=== PATIENT | male | born 1945 | race Caucasian/White ===

== ENCOUNTER 2017-05-10 01:56 | Emergency (ER) | payer OTHER ==
--- NOTE | 2017-05-10 01:58 | EDPHY ---
H & P HPI/ROS: HPI CHIEF COMPLAINT: Left upper extremity swelling, redness, questionable cellulitis HISTORY OF PRESENT ILLNESS: Patient very pleasant 71-year-old male, history of diabetes, additionally bradycardia with a left-sided chest pacemaker he presents emergency room with a left upper extremity redness these concerned maybe is cellulitis. He noticed this around noon today. He has not had any fever or infectious type symptoms. He denies any significant pain. He states for the past 2-3 days he noticed some pain in his left biceps especially when he goes to flex his biceps. He does not recall any trauma but he does report that he worked on a fence and put up fence. He does not recall an injury to his left upper extremity or left bicep. Upon arrival here in the emergency room he appears well nontoxic no acute distress he has left upper biceps region is swollen and there is ecchymosis over the anterior aspect of it. I do not appreciate any warmth, this does not appear cellulitic to me it has a dark red purplish discoloration. It is mildly tender with palpation. There is no crepitus. Distally his left arm has a good pulse. Good cap refill. Sensations intact. There is no evidence of biceps tear. Denies history of DVT or PE. Past Medical History: Diabetes and bradycardia, hyperlipidemia Past Surgical History: Left chest pacemaker Social History: Denies daily use of drugs alcohol tobacco products. Family History: Noncontributory ROS REVIEW OF SYSTEMS: A comprehensive 10 point review of systems is otherwise negative aside from elements mentioned in the history of present illness. Exam Constitutional appears well nontoxic triage nursing summary reviewed, vital signs reviewed, awake/alert. Eyes normal conjunctivae and sclera, EOMI, PERRLA. HENT normal inspection, atraumatic, moist mucus membranes, no epistaxis, neck supple/ no meningismus, no raccoon eyes. Respiratory clear to auscultation bilaterally, normal breath sounds, no respiratory distress, no wheezing. Cardiovascular rate normal, regular rhythm, no murmur, no edema, distal pulses normal. Gastrointestinal soft, non-tender, no rebound, no guarding, normal bowel sounds, no distension, no pulsatile mass. Genitourinary no CVA tenderness. Musculoskeletal left upper extremity: Bicep is mildly swollen and mildly tender , there is no significant warmth, no crepitus, compartments are soft, there is ecchymosis over the anterior left biceps. It is dark red in color. He has good cap refill. Good radial pulse. Full range of motion full flexion of the biceps, no evidence of biceps tear on exam, no lymphadenopathy, no supraclavicular swelling or JVD on exam, no midline vertebral tenderness, full range of motion, no calf swelling, no tenderness of extremities, no meningismus , good pulses, neurovascularly intact. Skin pink, warm, & dry, no rash, skin atraumatic. Neurologic awake, alert and oriented x 3, AAOx3, moves all 4 extremities equally, motor intact, sensory intact, CN II-XII intact, normal cerebellar, normal vision, normal speech. Psychiatric normal mood/affect. Heme/Lymph/Immune no lymphadenopathy. Differential Diagnosis: Includes but is not limited to in a particular order bicep contusion, bicep inflammation, infection, DVT, cellulitis Medical Decision Making: Plan for this patient check basic blood work including CBC, ultrasound left upper extremity rule out DVT. Re-evaluation: Most likely this is left upper extremity contusion with ecchymosis. I do not feel this is significant cellulitis. 0337: Ultrasound report called to me by Dr. Rubio. This shows a small hematoma in the left bicep. No evidence of abscess or cellulitis on ultrasound. No evidence of DVT. Explained this to the patient. Recommend warm compresses. Gentle massage. Return precautions discussed return if worsening swelling, pain, fever questions or concerns. Source: Patient - Personal History Tetanus Vaccine Date: 06/21/10 - Medical/Surgical History Hx Asthma: No Hx Chronic Respiratory Disease: No Hx Diabetes: Yes Hx Cardiac Disease: Yes Hx Renal Disease: No Hx Cirrhosis: No Hx Alcoholism: No Hx HIV/AIDS: No Hx Splenectomy or Spleen Trauma: No Other PMH: PERICARDITIS, PACEMAKER, CERVICAL SURGERY, POLYP REMOVAL SURGERY/ COLON RESECTION, APPY, ING HERNIA, L AND R KNEE SCOPE, HTN, HIGH CHOL, OVERACTIVE BLADDER, ENLARGED PROSTATE - Social History Smoking Status: Former smoker Constitutional: Initial Vital Signs Temperature (C) 36.5 C 05/10/17 02:03 Heart Rate 75 05/10/17 02:03 Respiratory Rate 16 05/10/17 02:03 Blood Pressure 128/72 H 05/10/17 02:03 O2 Sat (%) 96 05/10/17 02:03 O2 Delivery Mode Room Air Allergies/Adverse Reactions: Penicillins Allergy (Severe, Verified 02/22/14 22:10) Anaphylaxis Home Medications: Medication Instructions Recorded Aspirin [Aspirin 81mg (*)] 81 mg PO BID 09/01/13 Cholecalciferol (Vitamin D3) 4,000 unit PO DAILY 09/01/13 [Vitamin D3] FENOFIBRATE 160 mg PO HS 09/01/13 Metoprolol Tartrate [Lopressor 25 12.5 mg PO BID 09/01/13 mg (*)] Solifenacin Succinate [Vesicare 5 5 mg PO HS 09/01/13 MG (*)] Vitamin B Complex [B Complex] 1 each PO DAILY 09/01/13 Cephalexin [Keflex] 500 mg PO Q6H #28 cap 05/10/17 Metformin HCl 05/10/17 Vesicare 05/10/17 Medical Decision Making - Data Points Laboratory Results: Laboratory Results 05/10/17 02:35 05/10/17 02:35 05/10/17 05/10/17 02:35 02:35 WBC 6.41 10^3/uL 10^3/uL (3.80-9.50) RBC 5.11 10^6/uL 10^6/uL (4.40-6.38) Hgb 16.1 g/dL g/dL (13.7-17.5) Hct 46.4 % % (40.0-51.0) MCV 90.8 fL fL (81.5-99.8) MCH 31.5 pg pg (27.9-34.1) MCHC 34.7 g/dL g/dL (32.4-36.7) RDW 12.9 % % (11.5-15.2) Plt Count 208 10^3/uL 10^3/uL (150-400) MPV 9.9 fL fL (8.7-11.7) Neut % (Auto) 57.2 % % (39.3-74.2) Lymph % (Auto) 30.4 % % (15.0-45.0) Stevens % (Auto) 8.6 % % (4.5-13.0) Eos % (Auto) 3.0 % % (0.6-7.6) Baso % (Auto) 0.3 % % (0.3-1.7) Nucleat RBC Rel Count 0.0 % % (0.0-0.2) Absolute Neuts (auto) 3.67 10^3/uL 10^3/uL (1.70-6.50) Absolute Lymphs (auto) 1.95 10^3/uL 10^3/uL (1.00-3.00) Absolute Monos (auto) 0.55 10^3/uL 10^3/uL (0.30-0.80) Absolute Eos (auto) 0.19 10^3/uL 10^3/uL (0.03-0.40) Absolute Basos (auto) 0.02 10^3/uL 10^3/uL (0.02-0.10) Absolute Nucleated RBC 0.00 10^3/uL 10^3/uL (0-0.01) Immature Gran % 0.5 % % (0.0-1.1) Immature Gran # 0.03 10^3/uL 10^3/uL (0.00-0.10) Sodium 146 mEq/L H mEq/L (134-144) Potassium 4.9 mEq/L mEq/L (3.5-5.2) Chloride 111 mEq/L H mEq/L (97-110) Carbon Dioxide 23 mEq/l mEq/l (22-31) Anion Gap 12 mEq/L mEq/L (8-16) BUN 30 mg/dL H mg/dL (7-23) Creatinine 1.2 mg/dL mg/dL (0.7-1.3) Estimated GFR 60 Glucose 134 mg/dL H mg/dL (70-100) Calcium 10.2 mg/dL mg/dL (8.5-10.4) Departure - Departure Disposition: Home, Routine, Self-Care Clinical Impression: Hematoma of arm Contusion of left upper extremity Qualifiers: Encounter type: initial encounter Qualified Code(s): S40.022A - Contusion of left upper arm, initial encounter Condition: Good Instructions: Contusion in Adults (ED), Hematoma (ED) Additional Instructions: 1. Watch this area closely if he develops fever, worsening redness, worsening pain seek re-evaluation. 2. Warm compresses 2-3 times per day. 3. I do believe this is most likely a contusion or bruise of her left upper extremity however I have given you antibiotic just in case this gets worse. 4. Follow up with her primary care doctor. Referrals: Miya Browning MD [Primary Care Provider] - As per Instructions Prescriptions: Cephalexin [Keflex] 500 mg PO Q6H #28 cap
[2017-05-10 02:10] VITALS: RESP 16; TEMP 97.7
[2017-05-10 02:42] LABS: PLATELET COUNT 208 10^3/uL (150-400)
[2017-05-10 03:49] VITALS: BP 125/74; PULSE 84; O2SAT 93
== END 2017-05-10 03:48 | disposition home or self-care (01) ==
DX: S40.022A Contusion of left upper arm, initial encounter (principal); E11.9 Type 2 diabetes mellitus without complications; I10 Essential (primary) hypertension; Z95.0 Presence of cardiac pacemaker; Z87.891 Personal history of nicotine dependence; Z79.82 Long term (current) use of aspirin; Z79.84 Long term (current) use of oral hypoglycemic drugs; X58.XXXA Exposure to other specified factors, initial encounter; Y99.8 Other external cause status; Y93.89 Activity, other specified

== ENCOUNTER 2017-08-16 08:01 | Inpatient (IN) | payer OTHER ==
--- NOTE | 2017-08-16 08:20 | EDPHY ---
H & P Time Seen by Provider: 08/16/17 08:16 HPI/ROS: CHIEF COMPLAINT: Dizzy lightheaded HISTORY OF PRESENT ILLNESS: Patient has pacemaker is set for rate minimum of 60 and was diagnosed with about a week and half ago with battery end of life. Feel a little fatigue yesterday and then today was dizzy and lightheaded worse with standing or exertion and feels very tired. Symptoms moderate to severe. Not associated with chest pain shortness of breath or actual fainting. REVIEW OF SYSTEMS: Eye: no change in vision ENT: no sore throat Cardiac: HPI Pulmonary: no cough or SOB Abdomen: no vomiting, diarrhea, abdominal pain Musculoskeletal: no back pain Skin: no rash Neuro: no headache Constitutional: no fever : no urinary symptoms A comprehensive 10 point review of systems is otherwise negative aside from elements mentioned in the history of present illness. PAST MEDICAL HISTORY: Pericarditis, pacer, neck surgery. Colon resection, appendectomy, hypertension, hypercholesterolemia. Sick sinus syndrome with pacemaker dependence. Social history: Currently not a smoker General Appearance: Alert and conversant, cooperative. Eyes: No scleral icterus. ENT, Mouth: Normal mucous membranes. Respiratory: Normal respiratory effort, breath sounds equal, lungs are clear to auscultation. Cardiovascular: Regular rate and rhythm. Bradycardic. Gastrointestinal: Abdomen is soft and non tender. Neurological: Alert, face symmetric, normal motor and sensory in extremities. Skin: Warm and dry, no rashes. Musculoskeletal: No peripheral edema. Psychiatric: Not agitated. Emergency Department course/MDM: 940: per [employer] rate goes down with end of battery life, can't change that setting. Discussed with Dr. Trimble who recommends admission for pacemaker battery change. Urinalysis and echocardiogram. Plan discussed with the patient. Smoking Status: Former smoker Constitutional: Initial Vital Signs Temperature (C) 36.7 C 08/16/17 08:09 Heart Rate 57 L 08/16/17 08:09 Respiratory Rate 16 08/16/17 08:09 Blood Pressure 123/92 H 08/16/17 08:09 O2 Sat (%) 99 08/16/17 08:09 O2 Delivery Mode Room Air Allergies/Adverse Reactions: Penicillins Allergy (Severe, Verified 08/16/17 08:07) Anaphylaxis Home Medications: Medication Instructions Recorded Aspirin [Aspirin 81mg (*)] 81 mg PO BID 09/01/13 Cholecalciferol (Vitamin D3) 4,000 unit PO DAILY 09/01/13 [Vitamin D3] FENOFIBRATE 160 mg PO HS 09/01/13 Metoprolol Tartrate [Lopressor 25 12.5 mg PO BID 09/01/13 mg (*)] Solifenacin Succinate [Vesicare 5 5 mg PO HS 09/01/13 MG (*)] Vitamin B Complex [B Complex] 1 each PO DAILY 09/01/13 Metformin HCl 05/10/17 Vesicare 05/10/17 Rosuvastatin Calcium 08/16/17 Turmeric 08/16/17 Medical Decision Making - Diagnostics EKG Interpretation: 12-lead EKG interpreted by me; official reading is in trace master. My interpretation is ventricular paced complexes with left bundle branch block rate 53. Differential Diagnosis: Differential considered including but not limited to bradycardia, pacemaker dysfunction, metabolic abnormality, acute neurologic problems such as stroke. Consult/Admit Bed Type: [facility] [address], [place] [id number] - Data Points Laboratory Results: Laboratory Results 08/16/17 08:34 08/16/17 08:34 08/16/17 08/16/17 08:34 08:34 WBC 5.01 10^3/uL 10^3/uL (3.80-9.50) RBC 5.18 10^6/uL 10^6/uL (4.40-6.38) Hgb 16.1 g/dL g/dL (13.7-17.5) Hct 47.3 % % (40.0-51.0) MCV 91.3 fL fL (81.5-99.8) MCH 31.1 pg pg (27.9-34.1) MCHC 34.0 g/dL g/dL (32.4-36.7) RDW 13.1 % % (11.5-15.2) Plt Count 201 10^3/uL 10^3/uL (150-400) MPV 10.5 fL fL (8.7-11.7) Neut % (Auto) 49.1 % % (39.3-74.2) Lymph % (Auto) 33.5 % % (15.0-45.0) Smith % (Auto) 12.0 % % (4.5-13.0) Eos % (Auto) 4.6 % % (0.6-7.6) Baso % (Auto) 0.2 % L % (0.3-1.7) Nucleat RBC Rel Count 0.0 % % (0.0-0.2) Absolute Neuts (auto) 2.46 10^3/uL 10^3/uL (1.70-6.50) Absolute Lymphs (auto) 1.68 10^3/uL 10^3/uL (1.00-3.00) Absolute Monos (auto) 0.60 10^3/uL 10^3/uL (0.30-0.80) Absolute Eos (auto) 0.23 10^3/uL 10^3/uL (0.03-0.40) Absolute Basos (auto) 0.01 10^3/uL L 10^3/uL (0.02-0.10) Absolute Nucleated RBC 0.00 10^3/uL 10^3/uL (0-0.01) Immature Gran % 0.6 % % (0.0-1.1) Immature Gran # 0.03 10^3/uL 10^3/uL (0.00-0.10) Sodium 143 mEq/L mEq/L (135-145) Potassium 4.9 mEq/L mEq/L (3.5-5.2) Chloride 107 mEq/L mEq/L (97-110) Carbon Dioxide 23 mEq/l mEq/l (22-31) Anion Gap 13 mEq/L mEq/L (8-16) BUN 28 mg/dL H mg/dL (7-23) Creatinine 1.3 mg/dL mg/dL (0.7-1.3) Estimated GFR 54 Glucose 125 mg/dL H mg/dL (70-100) Calcium 9.6 mg/dL mg/dL (8.5-10.4) Troponin I < 0.012 ng/mL ng/mL (0.000-0.034) Departure - Departure Disposition: [facility] Clinical Impression: Bradycardia, Pacemaker at end of battery life Condition: Good
--- NOTE | 2017-08-16 08:22 | CPEKG ---
Heart Rate: 53 RR Interval: 1132 P-R Interval: 160 QRSD Interval: 182 QT Interval: 540 QTC Interval: 508 P [place]: 0 QRS [place]: -57 T Wave [place]: 11 EKG Severity - ABNORMAL ECG - EKG Impression: VENTRICULAR-PACED COMPLEXES EKG Impression: LEFT BUNDLE BRANCH BLOCK Electronically Signed By: Olvin Simons 16-Aug-2017 09:57:46
[2017-08-16 09:27] LABS: PLATELET COUNT 201 10^3/uL (150-400)
[2017-08-16] MEDS ORDERED: ONDANSETRON DISINTEGRATING 4 MG TAB PO PRN (10:17)
[2017-08-16] MEDS ORDERED: ACETAMINOPHEN 325 MG TAB PO PRN (10:17)
[2017-08-16] MEDS ORDERED: ONDANSETRON 4 MG/2 ML VIAL IVP PRN (10:17)
[2017-08-16] MEDS ORDERED: NS 1,000 ML IV SCH (10:30)
--- NOTE | 2017-08-16 11:25 | ECHO ---
[email or web address] [address] [address] Main: [phone] Fax: [email or web address] Echocardiogram Name: CARL JAQUEZ MR#: [id number] Study Date: 08/16/2017 Study Time: 10:48 AM Date of : 1945 Age: 72 year(s) Height: 167.6 cm (66 in.) Weight: 94.8 kg (209 lb.) BSA: 2.04 m2 Gender: Male Examination: Echo Indication: SOB/bradycardia/hx pacer Image Quality: Contrast: Requested by: Olvin Simons BP: 125 mmHg/83 mmHg Heart Rate: Rhythm: Indication: SOB/bradycardia/hx pacer Procedure Staff Applications Engineering Manager: Narcisa Michael RDCS Reading Physician: Jim Trimble MD Requesting Provider: Conclusions: 1)Normal LV size and systolic function with a LVEF of 55%. 2)Borderline concentric LVH noted. 3)Mild RV enlargement with normal RVEF. 4)Mild bi-atrial enlargement. 5)Pacer wires noted in right heart chambers. 6)Aortic valve sclerosis without or AI noted. 7)Mild MR without MV prolapse. 8)Mild TR with estimated normal PA pressures. Measurements: Chambers Valvular Assessment AV/MV Valvular Assessment TV/PV Normal Normal Normal Name Value Range Name Value Range Name Value Range Ao Vanessa (2D): 3.3 cm (1.4 cm-2.6 AV Vmax: 1.28 m/s (1 m/s-1.7 TR Vmax: 2.57 mm/s ( - ) cm) m/s) TR PGmax: 26 mmHg ( - ) IVSd (2D): 0.8 cm (0.6 cm-1.1 AV maxP mmHg ( - ) syst. PAP: 31 mmHg ( - ) cm) AV meanP mmHg ( - ) LVDd (2D): 5.0 cm (4.2 cm-5.9 MV E Vmax: 0.87 m/s ( - ) cm) MV A Vmax: 0.26 m/s ( - ) LVDs (2D): 3.3 cm (2.1 cm-4 MV E/A: 3.35 ( - ) cm) LVPWd (2D): 0.9 cm (0.6 cm-1 cm) LVEF (MOD4): 55 % (>=55 %) Continued Measurements: Chambers Valvular Assessment AV/MV Valvular Assessment TV/PV Name Value Name Value Name Value LADs: 4.0 cm MV E/E' Septal: 13.40 CVP (est.): 5 mmHg Patient: CARL JAQUEZ Study Date: 08/16/2017 Page 1 of 2 10:48 AM LADs Lon.3 cm MV E/E' Lateral: 12.00 LA Area: 17.7 cm2 Findings: Left Ventricle: Normal size left ventricle. Borderline concentric LV hypertrophy. Normal global systolic LV function. EF is 55 %. No regional wall motion abnormality. Right Ventricle: Mildly dilated right ventricle. Normal RV function. There is a pacemaker lead noted in the right ventricle. There is a moderator band noted in the right ventricle. Left Atrium: The left atrium is mildly dilated. Right Atrium: The right atrium is mildly dilated. Mitral Valve: The mitral valve is normal in appearance and function. Mild mitral valve regurgitation is present. Aortic Valve: Mildly calcified NCC of the aortic valve.. Tricuspid Valve: The tricuspid valve is normal in appearance and function. Mild tricuspid regurgitation is present. The pulmonary artery pressure is normal. Pulmonic Valve: The pulmonic valve is normal in appearance and function. Trivial pulmonic valve regurgitation. Aorta: The aorta is normal. Pericardium: No pericardial effusion. (No Signature Object) Patient: CARL JAQUEZ Study Date: 08/16/2017 Page 2 of 2 10:48 AM [id number]
--- NOTE | 2017-08-16 13:01 | GCON ---
[f rep st] CONSULTATION CARDIOLOGY CONSULTATION REFERRING PHYSICIAN: Edith Acharya MD REASON FOR CARDIOLOGY CONSULTATION: Lightheadedness, short of breath, and fatigue symptoms; known hi story of sick sinus syndrome with previous PPM implantation, device has hit ROJELIO. HISTORY OF PRESENT ILLNESS: The patient is a 72-year-old male who is followed by Dr Rose of our [facility]. He has significant past history that includes sick sinus syndrome with remote PPM implantation May of 2009, hypertension, occasional premature ventricular contractions, subclinical CAD based off cardiac calcium scoring, noninsulin-dependent diabetes; sleep apnea, both centralized and obstruc tive, currently on CPAP. Patient informs me that he has been in his usual state of health. He had a recent device check done at our office, showing his device was soon to hit ROJELIO. He was planning to be seen in the next week for evaluation, with generator change. He informs me this morning waking up , feeling very fatigued, mild lightheadedness, and some shortness of breath. When he took his pulse, he noted his heart rate was 50 beats per minute. Knowing that his device had been set at 60, he was concerned that the device was malfunctioning. He came into the emergency department for further gianfranco luation. Upon there, he was found to be in a VVI rhythm. [employer] inbound sales representative did come up to in terrogate device, showing that it had reached ROJELIO, and had mode switched to VVI to conserve battery l otilio. He reports mild fatigue and shortness of breath with these new settings on his device. He jasmin es any chest pressure or pain. Reports no palpitations, did report some mild lightheadedness with po sitional changing starting this morning, but denies of any near-syncope or syncopal events. He repor ts no recent history of fevers, chills, or night sweats. Denies of any symptoms suggestive of TIA or CVA. PAST MEDICAL HISTORY: Patient with significant past history that includes: 1. Sick sinus syndrome. 2. CAD based off a cardiac calcium scoring CT, reporting most recent stress test less than 2 years a go and he was told everything was "fine.". 3. Hyperlipidemia. 4. Hypertension. 5. Diabetes type 2. 6. Sleep apnea, both centralized and obstructive, currently on CPAP. PAST SURGICAL HISTORY: Previous PPM implantation in May of 2009, history of bowel resection, pre vious cervical spine fusion, scoping of both knees, history of vasectomy, history of T and A, history of appendectomy. FAMILY HISTORY: Patient reports family history of coronary artery disease, reporting older brother jeff ojeda a CABG at age of 80, another older brother who of sudden cardiac . SOCIAL HISTORY: He is . He is retired computer analysis multimedia programmer. He has a previous histo ry of smoking, quitting greater than 40 years ago. He has 5 children, 2 are officially his, who are both alive and well. He reports he drinks 3-4 drinks a week, and occasional marijuana use; denies of any other illicit drug use. ALLERGIES: The patient with reported history of penicillin allergy. MEDICATIONS: At home include metoprolol tartrate 12.5 mg p.o. b.i.d., vitamin D 2000 units p.o. chioma y, metformin 1000 mg p.o. daily at 8 o'clock, Crestor 40 mg p.o. h.s., fenofibrate 160 mg p.o. h.s., aspirin 81 mg p.o. daily, VESIcare 10 mg p.o. daily, Flonase 1 spray each nostril daily, multivitamin p.o. daily, vitamin B 1 tablet p.o. daily, herbs and supplements 1 tablet p.o. daily. REVIEW OF SYSTEMS: A 10-point review of systems done on patient, all negative except as mentioned ab ove. PHYSICAL EXAMINATION: GENERAL APPEARANCE: Medium-built, mildly-obese, male. He is alert and oriented to person, place, time, and situation. Appears to be under no acute distress at this ti hi. CURRENT VITAL SIGNS: Heart rate 55 beats per minute, ventricular paced on the monitor. Blood p ressure of 103/69, respirations 16, saturating 96% on room air. HEENT: Head is normocephalic. Lips and tongue are pink and moist with no signs of cyanosis. Conjunctivae pink. NECK: Trachea is midl ine, +2 carotid pulses bilateral. No auscultated bruits. LUNGS: Clear to auscultation, no rhonchi, rales or wheezes, no accessory muscle use. No intercostal muscle retraction noted. CARDIAC: Regul ar rate, regular rhythm, S1, S2, no S3, S4, gallops, rubs, or murmurs. ABDOMEN: Soft, nontender, dhaval wel sounds x4 quadrants, no organomegaly, no palpable masses. SKIN: [place], warm, dry, no cyanosis, n o clubbing, no peripheral edema. VASCULAR: +2 carotids bilateral, +2 radials bilateral, +2 dorsal p edal and posterior tibial pulses bilateral. LABORATORY STUDIES: Laboratory studies drawn today show WBC of 5.01, hemoglobin of 16.1, hematocrit of 47.3, platelet count of 201. Sodium 143, potassium 4.9, chloride 107, CO2 of 23, BUN 28, creatini ne 1.3, glucose 125, calcium 9.6, troponin less than 0.012. STUDIES: Electrocardiogram done on admission shows ventricular-paced rhythm. Echocardiogram done in the emergency department this morning showing normal LV size and systolic function with EF of 55%, b orderline concentric LVH, mild RV enlargement with normal RVEF, mild biatrial enlargement, aortic mirian ve sclerosis without stenosis or insufficiency, mild MR without mitral valve prolapse, mild TR with n ormal pulmonary artery pressures. ASSESSMENT AND PLAN: 1. Sick sinus syndrome: Patient noted with history of sick sinus syndrome with remote permanent pac emaker implantation, device is at ROJELIO, causing it to mode switch to a VVI mode and lower rate. Patie nt does report lightheadedness, shortness of breath, and potential near-syncopal event this morning. We will plan on patient being admitted to the telemetry unit overnight, and make him n.p.o. after mi dnight, and plan for a permanent pacemaker device change tomorrow to be performed by Dr Souza. Prophy lactic IV antibiotic has been ordered for tomorrow morning. If necessary, procedure can be done soon er more urgently. 2. History of coronary artery disease: This is based off cardiac calcium scoring. He reports he mills s had a stress test in the last 2 years at [facility] which was normal. Echocardiogram showi ng normal LV wall motion with normal ejection fraction. Negative troponin, patient has had no chest pain or pressure. Continue on current anti-platelet therapy of aspirin. 3. Hypertension: The patient's blood pressure is well controlled at the current time, if anything m ildly low, probable due to lower heart rate with PPM in ROJELIO mode of VVI. Hold his beta-susie metop rolol at the current time. 4. Noted history of premature ventricular contractions. Patient again reporting recent stress testi ng with no signs of ischemia, has been treated for PVCs with metoprolol in the past, currently on hol d due to his bradycardia. Potentially will reinstitute after device change and set back to his mirna l parameters. 5. Hyperlipidemia: The patient is on secondary risk prevention with Crestor and fenofibrate. Will plan on him continuing these medications during hospitalization. 6. Diabetes: The patient is currently on metformin. He is also being followed by hospitalist cata anne with further recommendations. 7. Thank you for this consultation. We will be glad to follow along with you. /[id number]
--- NOTE | 2017-08-16 13:06 | GHP ---
[f rep st] HISTORY AND PHYSICAL DATE OF ADMISSION: 08/16/2017 CHIEF COMPLAINT: Dizziness. HISTORY OF PRESENT ILLNESS: This is a 72-year-old male, with a history of a permanent pacemaker plac ed for sick sinus syndrome, who presents with sudden onset of symptoms of dizziness and lightheadedne ss the morning of the presentation. Patient reports being in his normal state of health the day befo re, eating and drinking normally, without any diarrhea, nausea, vomiting, chest pain, palpitations. The patient then awoke this morning and had a very intense sense of dizziness and described sensation of his heart beating slowly. The patient presented to the emergency department for evaluation. In the ED, he is denying any chest pain, vision changes, headaches, persistent sensation of lightheadedn ess, weakness, and a slow heart rate. Patient was evaluated by the [employer] device specialist and f ound to be in a reserve battery mode of his pacemaker, which switched into that mode the morning of p resentation, consistent with the initiation of his symptoms. The patient reports compliantly taking all his medications the morning of presentation. Is not endorsing any other physical complaints. PAST MEDICAL HISTORY: 1. Sick sinus syndrome, status post pacemaker placement. 2. Hypertension. 3. Hyperlipidemia. 4. Type 2 diabetes. 5. Coronary artery disease, diagnosed by calcium score with the CT scan. SOCIAL HISTORY: The patient has smoked for 20 years but has not smoked in the last 40. Occasional a lcohol. Occasional marijuana. No illicit drugs. FAMILY HISTORY: Positive for heart disease. REVIEW OF SYSTEMS: A 10-point review of systems is negative, with the exception of that reported in the HPI. PHYSICAL EXAMINATION: VITAL SIGNS: Blood pressure 103/69, heart rate 53, respiratory rate 16, 96% o n room air, 36.5. GENERAL: This is an obese, pleasant, middle-aged male. HEENT: Notable for moist mucous membranes. Eye exam is negative for any icterus. CARDIAC: Patient is bradycardic, regular with a systolic murmur. HEART: Sounds are distant. PULMONARY: Good respiratory effort. Clear to auscultation bilaterally. GASTROINTESTINAL: Positive bowel sounds. ABDOMEN: Soft and nontender. MUSCULOSKELETAL: Negative for any lower extremity edema. SKIN: Negative for any rashes. NEUROLOGI C: Patient is alert and oriented x3. PSYCHIATRIC: He is pleasant and cooperative on interview and examination. DATA: White count 5, hematocrit 47.3, platelets of 201. Sodium 143, creatinine 1.3, glucose 125. T roponin less than 0.012. EKG, which I personally reviewed and interpreted, shows paced rhythm in the 50s. ASSESSMENT AND PLAN: This is a 72-year-old male presenting with dizziness. 1. Acute dizziness. Based on the patient's symptoms, and the timing of his device setting changing to reserve battery mode, suspect his symptoms are related to his paced rate. The patient will be adm itted, placed on telemetry, be made [id number] after midnight tonight for device change tomorro w. We will hold his beta susie overnight. 2. Diabetes. The patient takes metformin in the outpatient setting. Will hold while inpatient. 3. Hypertension. Patient's blood pressures are borderline low. We will hold his metoprolol, as men tioned above. 4. Hyperlipidemia. We will continue his statin and fenofibrate. 5. Coronary artery disease, per calcium score and a CT scan. Patient is on baby aspirin, statin, an d a beta susie. He is currently without any chest pain complaints. We will continue the aspirin a nd lipid agents, holding the metoprolol until after his device exchange. DIET: Cardiac and n.p.o. after midnight. PROPHYLAXIS: Will hold for procedure tomorrow. DISPOSITION: I expect greater than 2 midnights. The patient will require monitoring this evening, a s well as postprocedural monitoring tomorrow evening. I discussed the case with Cardiology. Patient will be triaged to the PCU for monitoring and care. /[id number]/MODL
--- NOTE | 2017-08-16 14:47 | PDMN ---
Medical Necessity Medical necessity: C/M review: est. > 2 MN LOS for eval and TX of acute dizziness, patient permanent pacemaker in reserve battery mode upon interrogation in ED, which switched into that mode this AM prior to presentation to ED, requiring Cardiology consult, planned 08/17/2017 permanent pacemaker device change, hold metoprolol 08/16/2017 overnight, ongoing cardiac monitoring, comorbid type 2 diabetes, hypertension, hyperlipidemia, CAD per calcium score and CT scan, history of sick sinus syndrome S/P pacemaker placement per H/P.
[2017-08-16] MEDS ORDERED: ROSUVASTATIN CALCIUM 40 MG TAB PO SCH (21:00)
[2017-08-16] MEDS ORDERED: FENOFIBRATE 160 MG PO SCH (21:00)
[2017-08-16] MEDS ORDERED: ZOLPIDEM TARTRATE 5 MG TAB PO PRN (21:12)
[2017-08-17 05:22] LABS: PLATELET COUNT 205 10^3/uL (150-400)
[2017-08-17 05:33] LABS: INR 1.05 (0.83-1.16); PROTIME(PATIENT) 13.9 SEC (12.0-15.0)
[2017-08-17] MEDS ORDERED: BACITRACIN IRRIGATION/NS 50,000 UNITS/1,000 ML BTL IRR ONE (06:00)
[2017-08-17] MEDS ORDERED: NS 1,000 ML IV ONE (06:00)
[2017-08-17] MEDS ORDERED: VANCOMYCIN 1.5 GM in D5W 250 ML IV ONE (06:30)
--- NOTE | 2017-08-17 07:51 | PDHPUP ---
History & Physical Update H&P update statement: This history and physical update is based on an assessment of the patient which was completed after admission or registration (within 24 hours), but prior to the surgery/procedure. H&P update: H&P reviewed & patient examined, no change in patient's condition since H&P completed
--- NOTE | 2017-08-17 07:54 | PDPROPOC ---
Sedation Plan of Care Sedation Plan of Care: vital signs stable, mental status noted, patient educated of risks, benefits, alternatives, patient can tolerate sedation ASA Classification: ASA 3 Planned drugs: fentanyl, midazolam Mallampati Score: Class 3 Mallampati Reference Image: Patient passed 3-3-2 rule?: Yes
[2017-08-17] MEDS ORDERED: LIDOCAINE 1% 300 MG/30 ML SDV ONE (08:34)
[2017-08-17] MEDS ORDERED: LIDO/EPI 1% **for epidural** 30 ML SDV ONE (08:35)
[2017-08-17] MEDS ORDERED: fentaNYL 100 MCG/2 ML INJ ONE ×2 (08:35→09:03)
[2017-08-17] MEDS ORDERED: BUPIVACAINE 0.5% 30 ML SDV ONE (08:36)
[2017-08-17] MEDS ORDERED: ASPIRIN 81 MG CHEWABLE TAB PO SCH (09:00)
[2017-08-17] MEDS ORDERED: MULTIVITAMINS 1 EACH TAB PO SCH (09:00)
[2017-08-17] MEDS ORDERED: SOLIFENACIN SUCCINATE 10 MG PO SCH (09:00)
[2017-08-17 12:03] VITALS: BP 127/66
--- NOTE | 2017-08-17 14:55 | GDS ---
[f rep st] DISCHARGE SUMMARY DISCHARGE DIAGNOSES: Include: 1. Acute symptomatic bradycardia secondary to pacemaker. 2. Hypertension. 3. Hyperlipidemia. 4. Type 2 diabetes. 5. Sick sinus syndrome status post permanent pacemaker placement. 6. Coronary artery disease based on calcium score per CT imaging. HISTORY OF PRESENT ILLNESS: This is a 72-year-old male, with a permanent pacemaker, who developed di zziness and lightheadedness, was evaluated, and found to have his pacemaker shifted to reserve energy mode. The patient was brought in for generator exchange. For details of patient's initial presenta tion, please see the history and physical dated 08/16/2017. CONSULTATIVE SERVICES: Include Cardiology. PROCEDURES: On 08/17/2017, patient underwent generator exchange for his pacemaker. HOSPITAL COURSE BY ISSUE: Symptomatic bradycardia. Patient presented with heart rates in the 50s. When he had his device interrogation completed, it was noted that his device had shifted at the initi ation of his symptoms to reserve power mode with ventricular pacing in the 50s. Patient was seen by Cardiology, admitted, monitored overnight, and taken to the optical lab technician the morning after presentation f or generator exchange. Patient did excellent during the procedure and is ready for disposition home on his normal home meds. He will follow in the outpatient setting with Neli Rodriguez. MEDICATIONS AT THE TIME OF TRANSFER: Please reference the med rec printed on 08/17/2017. FOLLOWUP APPOINTMENTS: Include with Neli Rodriguez for postprocedure followup in the next 1-2 weeks, as well as with his primary care provider for ongoing management of his medical comorbidities. PENDING STUDIES: None. I spent greater than 30 minutes in the planning and coordination of this discharge. /[id number]/MODL
--- NOTE | 2017-08-21 08:57 | EPPROC ---
Electrophysiology Procedure Note: PROCEDURE PERFORMED: 1. AV Pacemaker generator change INDICATION: Pacemaker generator at ROJELIO Bradycardia PROCEDURE NOTE: Patient presented to the cardiac catheterization laboratory in a fasting, postabsorptive state. Moderate sedation administered. The left infraclavicular area was prepped and draped in the usual sterile fashion. Lidocaine plus bupivacaine was used for local anesthesia. Using a combination of blunt and sharp dissection and electrocautery, the dissection was carried down to the prepectoral fascia and the existing pacemaker pocket was opened. The pacemaker generator was disconnected from the leads and the lead thresholds and impedance were checked. The pacemaker pocket was copiously irrigated with antibiotic solution. The pocket was again inspected for any bleeding. The leads were attached to the pacemaker securely. The pacemaker was inserted into the pocket and secured in place with a nonabsorbable suture. The pacemaker pocket was closed in 3 layers with absorbable monocryl sutures.. Appropriate dressing was applied. The patient left the cardiac catheterization laboratory in stable condition. Serial Numbers: 1. Device [employer] Edora 8DR Sn [id number] 2. Atrial Lead St Jonathon [id number] 3. Ventricular Lead [employer] Setrox S53 SN [id number] Stimulation Thresholds & Impedance Measurements: 1. Atrial Lead 2.4mV, 0.8@0.4ms, 488Ohms 2. Ventricular Lead 8.9mV, 0.8@0.4ms, 533Ohms Ramon Pacing Parameters 1. Pacing mode DDDR 2. Lower rate 60 3. Upper tracking rate 130 4. Upper sensor rate 130 Patient Problems: Problems Problem Status Onset Bradycardia Acute CAD (coronary artery disease) Acute Chest pain Acute Pacemaker at end of battery life Acute
== END 2017-08-17 12:37 | disposition home or self-care (01) | DRG 259 ==
LOC: OBSVTOIN 09:50 → F2W 12:10
PROVIDERS: ADMIT Internal Medicine; ATTEND Hospitalist
PROC: 0JH606Z Insertion of Pacemaker, Dual Chamber into Chest Subcutaneous Tissue and Fascia, Open Approach (ICD-10-PCS; principal; 2017-08-17 09:54)
DX: Z45.010 Encounter for checking and testing of cardiac pacemaker pulse generator [battery] (principal); I49.5 Sick sinus syndrome; R42 Dizziness and giddiness; E78.5 Hyperlipidemia, unspecified; I10 Essential (primary) hypertension; E11.9 Type 2 diabetes mellitus without complications; G47.33 Obstructive sleep apnea (adult) (pediatric); G47.31 Primary central sleep apnea; R93.1 Abnormal findings on diagnostic imaging of heart and coronary circulation
CPT/HCPCS: C1785; J3010; J3370